=== PATIENT | male | born 1965 | race Caucasian/White ===

== ENCOUNTER → 2021-01-25 14:45 | Outpatient (CLI) | payer OTHER, SELFPAY ==
--- NOTE | ~2021-01-25 | XR_ITS ---
EXAMINATION: XR knee RT 3V EXAM DATE: 01/25/2021 15:18 INDICATION: Chronic bilateral knee pain. TECHNIQUE: Three projections of the right knee. Correlation is made to contralateral knee same date. FINDINGS: No evidence osteochondral defect or joint body in the right knee joint. No joint effusio n or bony productive changes. There are no acute fractures or dislocations identified. There is no s ubcutaneous gas. The soft tissue is unremarkable. There are no radiopaque foreign bodies. IMPRESSION: Unremarkable right knee exam. Reviewed, dictated and finalized at location A.
--- NOTE | ~2021-01-25 | XR_ITS ---
EXAMINATION: XR ankle RT min 3V, XR foot RT min 3V EXAM DATE: 01/25/2021 15:18 (accession [id number]), 01/25/2021 15:19 (accession [id number]) INDICATION: Chronic bilateral foot and ankle pain. TECHNIQUE: Right foot dorsoplantar, lateral and oblique projections obtained and reviewed. Right ank le frontal, lateral and oblique projections obtained and reviewed. There is no prior study for megan giron. FINDINGS: Right metatarsal bones unremarkable. The right ankle mortise appears intact. Small infer ior calcaneal spur. There are no acute fractures or dislocations identified. There is no subcutaneou s gas. The soft tissue is unremarkable. There are no radiopaque foreign bodies. Great The joint spaces are uniform. IMPRESSION: 1. Small right calcaneal spur. Reviewed, dictated and finalized at location A. IMPRESSION: 1. Small right calcaneal spur.
--- NOTE | ~2021-01-25 | XR_ITS ---
EXAMINATION: XR knee LT 3V EXAM DATE: 01/25/2021 15:18 INDICATION: Chronic bilateral knee pain. TECHNIQUE: Three projections of the left knee. There is no prior study for comparison. FINDINGS: No evidence osteochondral defect or joint body in the left knee joint. No joint effusion . No bony productive changes. There are no acute fractures or dislocations identified. There is no s ubcutaneous gas. The soft tissue is unremarkable. There are no radiopaque foreign bodies. IMPRESSION: Unremarkable left knee exam. Reviewed, dictated and finalized at location A.
--- NOTE | ~2021-01-25 | XR_ITS ---
EXAMINATION: XR foot LT min 3V, XR ankle LT min 3V EXAM DATE: 01/25/2021 15:19 (accession [id number]), 01/25/2021 15:18 (accession [id number]) INDICATION: Chronic bilateral foot and ankle pain. TECHNIQUE: Left foot dorsoplantar, lateral and oblique projections obtained and reviewed. Left ankle frontal, lateral and oblique projections obtained and reviewed. There is no prior study for compari son. FINDINGS: Left metatarsal bones unremarkable. The left ankle mortise appears intact. There is sm all calcaneal spur inferiorly. The joint spaces are uniform. There are no bony erosions identified. T here are no acute fractures or dislocations identified. There is no subcutaneous gas. The soft tiss ue is unremarkable. There are no radiopaque foreign bodies. IMPRESSION: Small left calcaneal spur. Reviewed, dictated and finalized at location A. IMPRESSION: Small left calcaneal spur. IMPRESSION: Small left calcaneal spur.
== END ==
DX: M25.561 Pain in right knee (principal); M25.562 Pain in left knee; G89.29 Other chronic pain; M77.32 Calcaneal spur, left foot; M77.31 Calcaneal spur, right foot
CPT/HCPCS: 73562; 73610; 73630

== ENCOUNTER 2024-02-12 12:33 | Outpatient (CLI) | payer OTHER, SELFPAY ==
--- NOTE | ~2024-02-12 | US_ITS ---
EXAMINATION: US thyroid DATE: 02/12/2024 12:59 INDICATION: Hyperthyroidism. TECHNIQUE: Multiple ultrasound images of the thyroid were obtained. COMPARISON: None. FINDINGS: The right thyroid lobe measures 5.2 x 2.2 x 2.3 cm. The left thyroid lobe measures 4.9 x 2.1 x 2.3 c m. In the left thyroid lobe, there is a 1.6 cm solid, isoechoic, wider than tall nodule with ill-def ined margin without echogenic foci (TI-RADS TR3). IMPRESSION: 1. Left thyroid nodule. Thyroid ultrasound is recommended in one year. Reviewed, dictated and finalized at location A.
== END 2024-02-12 12:34 ==
LOC: GOSHIMG 12:38
PROVIDERS: PCP Nurse Practitioner; Visit Provider Nurse Practitioner
DX: E03.9 Hypothyroidism, unspecified (principal); E04.1 Nontoxic single thyroid nodule
CPT/HCPCS: 76536

== ENCOUNTER 2025-03-18 12:38 | Outpatient (CLI) | payer OTHER, SELFPAY ==
--- NOTE | ~2025-03-18 | US_ITS ---
EXAMINATION: US thyroid DATE: 03/18/2025 12:52 INDICATION: Thyroid nodule TECHNIQUE: Multiple ultrasound images of the thyroid were obtained. COMPARISON: 02/12/2024. FINDINGS: The right thyroid lobe measures 5.2 x 2.1 x 2.2 cm. The left thyroid lobe measures 4.3 x 1.9 x 2.4 cm. Within the left lobe of the thyroid gland is a 20 x 9 x 15 mm nodule: Composition - spongiform Echogenicity - hypoechoic (2) Shape - wider than tall Margin - smooth Echogenic foci - none. = TR2 not suspicious. The isthmus measures 0.7cm in anterior to posterior dimension. There is otherwise normal echotexture and echogenicity throughout the remainder of thyroid gland. No additional discrete nodules identified. Normal vascular flow is present. IMPRESSION: TR2 nodule in the left lobe of the thyroid gland measuring 20 mm in greatest dimension. This nodule is not sonographically suspicious and no FNA is recommended. Given changes in positioning and technique nodule is stable dating back to 02/12/2024 While follow-up is not recommended, it may be performed, in 2 years. Reviewed, dictated and finalized at location A. IMPRESSION: TR2 nodule in the left lobe of the thyroid gland measuring 20 mm in greatest di mension. This nodule is not sonographically suspicious and no FNA is recommended. Given changes in positioning and technique nodule is stable dating back to 02/11 While follow-up is not recommended, it may be performed, in 2 years.
== END 2025-03-18 12:39 | disposition home or self-care (01) ==
PROVIDERS: PCP Nurse Practitioner; Visit Provider Nurse Practitioner
DX: E04.1 Nontoxic single thyroid nodule (principal)
CPT/HCPCS: 76536